=== PATIENT | female | born 2000 | race African-American/Black ===

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

== ENCOUNTER 2022-11-07 03:47 | Inpatient (IN) ==
[2022-11-07] MEDS ORDERED: Buffered Lidocaine 1% SYRIN 1 ml INTRADERM ONE (05:19)
[2022-11-07] MEDS ORDERED: Lactated Ringers 1000 ml BAG 1,000 ML IV ONE ×2 (05:19→16:47)
[2022-11-07 06:39] LABS: Urine Benzodiazepine Screen None Detected (None Detect); Urine Cannabinoids Screen None Detected (None Detect); Urine Opiates Screen None Detected (None Detect)
[2022-11-07 06:39] LABS: Hemoglobin 10.4 g/dL (11.5-14.3); Mean Corpuscular Hemoglobin 24.2 pg (27-33); Mean Corpuscular Hgb Conc 32.6 g/dL (31-36); Mean Platelet Volume 8.3 fL (7.5-11.2); Platelet Count 246 10^3/uL (150-450); Red Blood Count 4.32 10^6/uL (3.63-4.92); Red Cell Distribution Width 16.9 % (12-17); White Blood Count 9.8 10^3/uL (3.8-11.8)
[2022-11-07 06:53] LABS: ABS Basophils 0.1 10^3/uL (0.0-0.1); ABS Eosinophils 0.3 10^3/uL (0.0-0.5); ABS Monocytes 0.9 10^3/uL (0.0-0.9); ABS Neutrophils 6.5 10^3/uL (1.5-7.6); ABS Nucleated RBC 0.02 10^3/ul; Eosinophil % 2.9 %; Lymphocyte % 20.4 %; Microcytosis 2+; Nucleated Red Blood Cells % 0.2 /100 WBC (0.0-0.4)
[2022-11-07] MEDS ORDERED: Oxytocin in LR 20,000 MILLI.UNIT/1,000 ML BAG IV ONE (08:40)
[2022-11-07] MEDS ORDERED: Oxytocin in LR 20,000 MILLI.UNIT/1,000 ML BAG IV SCH (13:30)
[2022-11-07] MEDS: Lactated Ringers 1000 ml BAG 1,000 ML IV SCH (14:33)
[2022-11-07] MEDS ORDERED: Lidocaine 1.5% EPI 1:200,000 30 ML SDV ONE (16:00)
[2022-11-07] MEDS ORDERED: OBEPIDURAL (200 ML) 200 ML EPIDURAL ONE (16:00)
[2022-11-07] MEDS ORDERED: Bupivacaine 0.25% SDV PF 10 ML VIAL INJ ONE (16:03)
[2022-11-07] MEDS ORDERED: Bupivacaine 0.5% SDV PF 30ML VIAL ONE (16:40)
[2022-11-07] MEDS ORDERED: Phenylephrine 40 mcg/mL 10mL (400mcg) SYRINGE IV PUSH PRN (16:47)
[2022-11-07] MEDS ORDERED: OBEPIDURAL (200 ML) 200 ML EPIDURAL SCH (17:00)
[2022-11-07] MEDS ORDERED: Lactated Ringers 1000 ml BAG 1,000 ML IV SCH (17:00)
[2022-11-07] MEDS: Phenylephrine 40 mcg/mL 10mL (400mcg) SYRINGE IV PUSH PRN ×4 (17:12→17:56)
[2022-11-07 18:23] LABS: Urine Appearance Clear; Urine Bilirubin Negative (Negative); Urine Blood Negative (Negative); Urine Color Yellow; Urine Glucose Negative (Negative); Urine Ketones 2+ (Negative); Urine Nitrite Negative (Negative); Urine Protein 2+(100 mg/dL) (Negative); Urine Specific Gravity 1.017 (1.002-1.030); Urine Urobilinogen Negative (Negative)
[2022-11-07 18:36] LABS: Urine Bacteria Absent (Absent); Urine Red Blood Cell 3+(>10/hpf) (Absent); Urine Renal Epithelial Cells Present (Absent); Urine Squamous Epithelial Cell Present (Absent); Urine White Blood Cell Trace(0-5/hpf) (Absent)
[2022-11-08] MEDS: Lactated Ringers 1000 ml BAG 1,000 ML IV SCH (00:51)
[2022-11-08] MEDS ORDERED: Sodium Citrate/Citric Acid LIQ 15 ML UDC ONE ×2 (01:52→01:55)
[2022-11-08] MEDS ORDERED: ceFOXitin 2 GM IVPREMIX 2 GM/50 ML BAG ONE (01:52)
[2022-11-08] MEDS ORDERED: Lidocaine 2% w/ EPI 1:200,000 MPF 20 ML SDV VIAL ONE (01:56)
[2022-11-08] MEDS ORDERED: Morphine PF AMP (0.5MG/ML) 5 MG/10 ML AMP ONE (01:56)
[2022-11-08] MEDS ORDERED: Oxytocin 10 UNITS/ML 1 ML VIAL ONE ×3 (01:57)
[2022-11-08] MEDS ORDERED: Acetaminophen IV 1 GM/100ML 1,000 MG/100 ML BAG IV ONE (01:57)
[2022-11-08] MEDS ORDERED: fentaNYL 100 mcg/2 ml 50 MCG/ML VIAL ONE (02:46)
[2022-11-08] MEDS ORDERED: Naloxone 0.4 mg VIAL 0.4 mg/ml 1 ml VIAL IV PUSH PRN (03:07)
[2022-11-08] MEDS ORDERED: Ondansetron 4 mg VIAL 2 MG/ML 2 ml VIAL IV PRN (03:07)
[2022-11-08] MEDS ORDERED: Acetaminophen IV 1 GM/100ML 1,000 MG/100 ML BAG IV PRN (03:07)
[2022-11-08] MEDS ORDERED: Metoclopramide 5 MG/ML VIAL (10 mg) IV PRN (03:07)
[2022-11-08] MEDS ORDERED: Dibucaine 1% OINT 28.35 GM TUBE PR PRN (03:09)
[2022-11-08] MEDS ORDERED: Glycerin ADULT 2.4 gm SUPP PR PRN (03:09)
[2022-11-08] MEDS ORDERED: Tetan/Diph/Pertus SYR(Tdap) 0.5 ML SYR(BOOSTRIX) use SYR contains LATEX IM ONE (03:09)
[2022-11-08] MEDS ORDERED: Witch Hazel PAD JAR TOPICAL PRN (03:09)
[2022-11-08] MEDS ORDERED: Lactated Ringers 1000 ml BAG 1,000 ML IV SCH (04:00)
[2022-11-08] MEDS: Oxytocin in LR 20,000 MILLI.UNIT/1,000 ML BAG IV SCH ×2 (06:58→11:17)
[2022-11-09 06:22] LABS: ABS Eosinophils 0.3 10^3/uL (0.0-0.5); ABS Lymphocytes 1.7 10^3/uL (1.0-4.8); ABS Monocytes 1.1 10^3/uL (0.0-0.9); ABS Neutrophils 12.9 10^3/uL (1.5-7.6); ABS Nucleated RBC 0.02 10^3/ul; Hematocrit 24.9 % (35-45); Hemoglobin 8.1 g/dL (11.5-14.3); Lymphocyte % 10.8 %; Mean Corpuscular Hemoglobin 23.8 pg (27-33); Mean Corpuscular Hgb Conc 32.4 g/dL (31-36); Mean Corpuscular Volume 73.5 fL (80-97); Mean Platelet Volume 8.4 fL (7.5-11.2); Nucleated Red Blood Cells % 0.1 /100 WBC (0.0-0.4); Platelet Count 223 10^3/uL (150-450); Red Blood Count 3.39 10^6/uL (3.63-4.92); Red Cell Distribution Width 16.7 % (12-17); White Blood Count 16.2 10^3/uL (3.8-11.8)
[2022-11-11 07:29] VITALS: BP 118/66
== END 2022-11-11 13:34 | disposition home or self-care (01) | DRG 540 ==
LOC: MCHOBOUT 03:47 → MCHOB 05:11
PROVIDERS: ADMIT Midwife; ATTEND Midwife